=== PATIENT | female | born 1990 | race African-American/Black ===

== ENCOUNTER 2017-01-04 23:48 | Inpatient (IN) | payer MEDICAID ==
[~2017-01-04] VITALS: Ht 175.3 cm; Wt 78.0 kg
[2017-01-05] MEDS ORDERED: LACT. RINGERS/OXYTOCIN 20UNITS 1,000 ML IV SCH (00:32)
[2017-01-05] MEDS ORDERED: LIDOCAINE 2%HCL (LOCAL ANESTH.) INJ 20ML MDV IJ PRN (00:45)
[2017-01-05] MEDS ORDERED: DERMOPLAST 60ML BOTTLE TOP PRN (00:45)
[2017-01-05] MEDS ORDERED: CARBOPROST TROMETHAMINE 250 MCG/1ML VIAL IM PRN (00:45)
[2017-01-05] MEDS ORDERED: NALBUPHINE HCL 10 MG/1ml INJECTION IV PRN (00:45)
[2017-01-05] MEDS ORDERED: METHYLERGONOVINE MALEATE 0.2 MG/ML AMP IM PRN (00:45)
[2017-01-05] MEDS ORDERED: WITCH HAZEL-GLYCERIN PAD TOP PRN (00:45)
[2017-01-05] MEDS ORDERED: PHISODERM TOP SOLN 240ML BTL TOP PRN (00:45)
[2017-01-05] MEDS: LACTATED RINGER'S 1,000 ML IV SCH ×3 (01:00→16:32)
[2017-01-05 01:21] LABS: Basophils # (auto) 0 uL; Basophils % (auto) 0.3 % (0.0-2.0); Eosinophils # (auto) 0 uL; Eosinophils % (auto) 0.2 % (0.0-7.0); Hematocrit 36.3 % (36.0-46.0); Hemoglobin 11.9 g/dL (12.2-16.2); Lymphocytes # (auto) 1.8 uL; Lymphocytes % (auto) 23.2 % (10.0-50.0); Mean Corpuscular Hemoglobin 30.7 pg (28.0-32.0); Mean Corpuscular Hgb Conc. 32.6 g/dL (32.0-36.0); Mean Corpuscular Volume 94.1 fL (80.0-100.0); Mean Platelet Volume 8.6 fL (7.4-10.4); Monocytes # (auto) 0.7 uL; Monocytes % (auto) 8.7 % (0.0-12.0); Neutrophils # (auto) 5.1 uL; Neutrophils % (auto) 67.6 % (37.0-80.0); Platelet Count (auto) 147 10^3/uL (140-450); Red Cell Distribution Width 14.6 % (11.6-16.0); SUSPECT VIEW TRANSMISSION; White Blood Cell 7.6 10^3/uL (4.4-10.8)
[2017-01-05 01:38] LABS: INR 0.9 (0.9-1.15); Partial Thromboplastin Time 27.8 sec (22.64-33.71); Prothrombin Time 9.7 sec (9.37-12.3)
[2017-01-05 01:39] LABS: BUN/Creatinine Ratio 6.4; Calcium 8.7 mg/dL (8.5-10.1); Potassium 3.8 mmol/L (3.5-5.1)
[2017-01-05 01:41] LABS: Bilirubin, Total 0.4 mg/dL (0.2-1.0); Total Protein 7.4 g/dL (6.4-8.2)
[2017-01-05] MEDS ORDERED: LIDOCAINE 2%HCL (LOCAL ANESTH.) INJ 20ML MDV IJ ONE (02:40)
[2017-01-05] MEDS ORDERED: LACT. RINGERS/OXYTOCIN 20UNITS 500 ML IV ONE (03:29)
[2017-01-05] MEDS: IBUPROFEN 600 MG TAB PO PRN ×2 (04:07→23:20)
[2017-01-05 04:25] LABS: Urine Bilirubin Negative (Negative); Urine Color Yellow (Yellow); Urine Glucose Normal (Normal); Urine Ketone TRACE (Negative); Urine Nitrite Negative (Negative); Urine RBC 30 /hpf (0 - 4); Urine Squamous Epithelial Cell FEW /hpf (<5); Urine Urobilinogen Normal (Negative)
[2017-01-05 04:29] LABS: Urine Blood 1+ /uL (Negative)
[2017-01-05 08:00] VITALS: BP 119/61
[2017-01-05 12:10] VITALS: BP 112/56
[2017-01-05 16:26] VITALS: BP 109/56
[2017-01-05 19:15] VITALS: BP 114/57
[2017-01-05 23:15] VITALS: BP 121/68
[2017-01-06 04:00] VITALS: BP 109/70
[2017-01-06 08:00] VITALS: BP 115/53
[2017-01-06] MEDS ORDERED: DOCUSATE SOD 100 MG CAP PO SCH (10:00)
[2017-01-06] MEDS ORDERED: PREN-96 PO (10:56)
[2017-01-06 12:00] VITALS: BP 108/62
[2017-01-06 13:29] VITALS: BP 108/62
== END 2017-01-06 13:29 | disposition home or self-care (01) | DRG 560 ==
LOC: LDRP 23:48 → OBSVTOIN 23:48 → LDRP 01-05 00:47
PROVIDERS: ADMIT Obstetrics & Gynecology; ATTEND Obstetrics & Gynecology
PROC: 10E0XZZ Delivery of Products of Conception, External Approach (ICD-10-PCS; principal; 2017-01-05)
PROC: 0KQM0ZZ Repair Perineum Muscle, Open Approach (ICD-10-PCS; 2017-01-05)
DX: O70.1 Second degree perineal laceration during delivery (principal); Z37.0 Single live birth; Z3A.39 39 weeks gestation of pregnancy
CPT/HCPCS: 36415; 51702; 59025; 59409; 80053; 80307; 81001; 81002; 85025; 85610; 85730; 86850; 86900; 86901; 96361; 96366; J2590

== ENCOUNTER 2021-02-22 13:50 | Observation (INO) | payer MEDICAID ==
[~2021-02-22 13:50] MED LIST: PREN-96 PO
== END 2021-02-22 15:08 | disposition home or self-care (01) ==
LOC: LDRP 13:50
PROVIDERS: ADMIT Obstetrics & Gynecology; ATTEND Obstetrics & Gynecology
DX: O26.892 Other specified pregnancy related conditions, second trimester (principal); R19.7 Diarrhea, unspecified; R11.0 Nausea; O09.213 Supervision of pregnancy with history of pre-term labor, third trimester; Z87.59 Personal history of other complications of pregnancy, childbirth and the puerperium; Z3A.27 27 weeks gestation of pregnancy
CPT/HCPCS: 59025; 81002; G0378

== ENCOUNTER 2021-03-28 14:00 | Observation (INO) | payer MEDICAID | END 2021-03-28 15:15 | disposition home or self-care (01) | LOC: LDRP 14:00 | PROVIDERS: ADMIT Obstetrics & Gynecology; ATTEND Obstetrics & Gynecology | DX: O99.891 Other specified diseases and conditions complicating pregnancy (principal); M54.9 Dorsalgia, unspecified; O26.893 Other specified pregnancy related conditions, third trimester; R10.9 Unspecified abdominal pain; R19.7 Diarrhea, unspecified; Z3A.32 32 weeks gestation of pregnancy | CPT/HCPCS: 59025; 81002; G0378 ==